=== PATIENT | female | born 1980 | race Caucasian/White ===

== ENCOUNTER → 2017-03-26 | Outpatient (CLI) | payer BC ==
[~2017-03-26] MED LIST: PRENATAL VITAMI1 TA5 PO
== END ==
LOC: MC.RAD 10:44
DX: N64.4 Mastodynia (principal)

== ENCOUNTER 2019-08-15 06:57 | Day surgery (SDC) | payer OTHER ==
[~2019-08-15] VITALS: Ht 170.2 cm; Wt 66.4 kg
[2019-08-15 07:18] VITALS: BP 134/88; PULSE 70; TEMP 98
[2019-08-15 08:55] VITALS: BP 145/75; PULSE 91; TEMP 98.4
--- NOTE | 2019-08-15 08:55 | NUR ---
TO [facility] PER CART FROM ENDOSCOPY. ALERT ORIENTED X3, AMBULATED TO RECLINER WITH ASSIST AND TOLERATED WELL. AT BEDSIDE. RECEIVED WATER.
[2019-08-15 09:10] VITALS: BP 126/74; PULSE 62
--- NOTE | 2019-08-15 09:20 | NUR ---
DR CLAROS INTO TALK TO PATIENT AND HER .
[2019-08-15 09:28] VITALS: BP 131/79; PULSE 66
--- NOTE | 2019-08-15 09:28 | NUR ---
RECEIVED DISCHARGE INSTRUCIONS AND VERBALIZED UNDERSTANDING. RECEIVED ADDITIONAL HAND OUT ON ULCERTIVE COLITIS.
--- NOTE | 2019-08-15 09:40 | NUR ---
DISCHARGED PER WC BY NURSING STAFF TO PRIVATE CAR IN CARE OF - PIERO.
== END 2019-08-15 09:53 | disposition home or self-care (01) ==
LOC: SDCO 06:57
DX: K52.9 Noninfective gastroenteritis and colitis, unspecified (principal); K92.1 Melena
CPT/HCPCS: J1200; J2250; J3010; J7030

== ENCOUNTER → 2019-09-02 | Outpatient (CLI) | payer OTHER | LOC: COL.RAD 09:45 | DX: K52.9 Noninfective gastroenteritis and colitis, unspecified (principal); K51.90 Ulcerative colitis, unspecified, without complications; N88.8 Other specified noninflammatory disorders of cervix uteri | CPT/HCPCS: A9585 ==

== ENCOUNTER 2020-04-10 16:27 | Inpatient (IN) | payer OTHER ==
[~2020-04-10] VITALS: Ht 170.2 cm; Wt 65.7 kg
[~2020-04-10 16:27] MED LIST changes: +LIALDA 1.2 GM1.2 GM PO
[2020-04-10 16:38] VITALS: BP 136/72; PULSE 79; TEMP 98.1
[2020-04-10] MEDS ORDERED: PROBIOTIC ACID1 EAC3 PO (17:11)
[2020-04-10] MEDS ORDERED: ENTOCORT EC3 MG PO (17:11)
--- NOTE | 2020-04-10 17:13 | NUR ---
PT SETTLED IN ROOM, ALLERGIES VERIFED, MED REC COMPLETED, COVID AND INFECTIOUS DISEASE SCREENING COMPLETED, 5-PAGE COMPLETED, IV PLACED IN RFA. PT IN BED, BED IN LOW POSITION, NO OTHER NEEDS AT THIS TIME.
--- NOTE | 2020-04-10 17:17 | NUR ---
PT COMPLAINING OF DIHARREA AND ABDOMINAL PAIN 03/28.
--- NOTE | 2020-04-10 18:08 | NUR ---
PT COMPLAINING OF ABDOMINAL PAIN 03/28, TYLENOL BROUGHT IN FOR PAIN, NEED TO REASSESS FOR FURTHER PAIN INTERVENTION. ASSESSMENT PERFORMED, FLUIDS HUNG, LOVENOX GIVEN. STOOL SAMPLE CUP AND HAT IN ROOM FOR WHEN PT HAS BM. PT REPORTS SHE HAD A STOOL SAMPLE COLLECTED YESTERDAY THAT WAS NEGATIVE FOR CDIFF. TB TEST TO BE COLLECTED TOMORROW MORNING BY LAB. NO OTHER NEEDS AT THIS TIME.
[2020-04-10 18:24] LABS: HEMATOCRIT 40.2 % (37.0-47.0); HEMOGLOBIN 13.3 g/dl (12.5-16.0); MEAN CELL VOLUME 96 fl (80.0-100.0); MEAN CORPUSCULAR HEMOGLOBIN 32 pg (27.0-31.0); MEAN CORPUSCULAR HGB CONC 33 g/dl (33.0-37.0); MEAN PLATELET VOLUME 8.9 fl (7.4-10.4); PLATELET COUNT 207 K/mm3 (130-400); RED BLOOD COUNT 4.19 M/mm3 (4.10-5.30); REDCELL DISTRIBUTION WIDTH-CV 12.1 % (11.5-14.5)
[2020-04-10 18:37] LABS: ALBUMIN 3.7 gm/dL (3.5-5.0); BILIRUBIN,TOTAL 0.4 mg/dL (0.0-1.0); CALCIUM 8.5 mg/dL (8.4-10.2); CREATININE, serum 0.79 (0.52-1.25); POTASSIUM 3.8 mmol/L (3.4-5.0); TOTAL PROTEIN 7.3 gm/dL (6.4-8.2)
[2020-04-10 18:48] LABS: BAND 27 % (0-10); EOSINOPHIL 7 % (0-4); LYMPHOCYTE 17 % (20.0-51.0); NEUTROPHILS 40 % (42.0-75.2); PLATELET ESTIMATE NORMAL (NORMAL); TOXIC GRANULATION PRESENT
[2020-04-10 18:54] LABS: C-REACTIVE PROTEIN 15.6 mg/dL (0.0-0.9)
[2020-04-10 19:03] LABS: ERYTHROCYTE SEDIMENTATION RATE 29 mm/hr (0-20)
[2020-04-10 19:30] VITALS: BP 130/74; PULSE 89
--- NOTE | 2020-04-10 19:51 | NUR ---
Pt assessment completed. Pt alert and oriented x4. Pt states pain is 3/10 across her lower abdomen. Pt describes pain as "aching/cramping". IVF infusing per orders to right forearm IV site without complications. Pt denies any other needs at this time. Call light within reach. Will conitnue to monitor
[2020-04-10 22:40] LABS: CLOSTRIDIUM DIFF A/B NEG; CLOSTRIDIUM DIFF A/B INTERP No C.diff present
[2020-04-11] VITALS (7 sets, daily range): BP systolic 106–128; BP diastolic 56–73; PULSE 65–89; TEMP 97.6–98.4
--- NOTE | 2020-04-11 02:00 | NUR ---
Pt resting in bed at this time. Complaints of lower abdominal pain that is rated 2/10. IVF infusing per orders. Pt denies any need at this time. Call light within reach.
--- NOTE | 2020-04-11 05:30 | NUR ---
Pt had uneventful shift. Pt states she rested well throughout the night. Complaints of lower abdominal throughout the night that pt stated was "tolerable". IVF infusing per orders to right forearm IV site. Pt denies any other needs at this time. Call light within reach.
--- NOTE | 2020-04-11 06:50 | NUR ---
REPORT GIVEN TO JOSE C DANIELS
[2020-04-11 07:38] LABS: MEAN CELL VOLUME 95 fl (80.0-100.0); MEAN CORPUSCULAR HEMOGLOBIN 32 pg (27.0-31.0); MEAN CORPUSCULAR HGB CONC 34 g/dl (33.0-37.0); MEAN PLATELET VOLUME 9.2 fl (7.4-10.4); PLATELET COUNT 202 K/mm3 (130-400); RED BLOOD COUNT 3.75 M/mm3 (4.10-5.30); REDCELL DISTRIBUTION WIDTH-CV 11.9 % (11.5-14.5)
[2020-04-11 07:43] LABS: HEMATOCRIT 35.7 % (37.0-47.0)
[2020-04-11 07:52] LABS: ALBUMIN 3.3 gm/dL (3.5-5.0); BILIRUBIN,TOTAL 0.3 mg/dL (0.0-1.0); CREATININE, serum 0.6 (0.52-1.25); POTASSIUM 3.9 mmol/L (3.4-5.0); TOTAL PROTEIN 6.4 gm/dL (6.4-8.2)
[2020-04-11 08:05] LABS: C-REACTIVE PROTEIN 13.5 mg/dL (0.0-0.9)
[2020-04-11 08:09] LABS: ERYTHROCYTE SEDIMENTATION RATE 34 mm/hr (0-20)
[2020-04-11 08:24] LABS: BAND 43 % (0-10); BASOPHIL 1 % (0-2); LYMPHOCYTE 8 % (20.0-51.0); NEUTROPHILS 39 % (42.0-75.2); PLATELET ESTIMATE NORMAL (NORMAL)
--- NOTE | 2020-04-11 08:48 | NUR ---
Assessment completed, alert/oriented, vital signs stable, patient denies any pain and stated she is doing better in that reguard, however she is still having frequent loose/bloody stools, C-diff(-) and she is scheduled for a Sigmoidoscopy at 0930, she has been NPO and has signed informed consent, IV solu-medrol given this morning, she denies other needs at this time, will continue to monitor
--- NOTE | 2020-04-11 09:40 | NUR ---
patient is going down to Endoscopy at this time
--- NOTE | 2020-04-11 11:27 | NUR ---
Patient has returned back to the Medical floor from Endosocopy, she is drowsy but arousable, vital signs stable,
--- NOTE | 2020-04-11 15:06 | NUR ---
JAYCE met with the patient to discuss discharge plan. The patient lives in [place] with her , Adriel (ph#[phone]), and children. She reports independence with ADLs and does not have any DME. The patient's PCP is Dr. Carolyne Stover and she receives her medications at [facility]. She reports no difficulties obtaining her meds. The patient does not have advance directives and she was not interested in completing them at this time. The patient plans to return home with her family upon discharge. No additional needs at this time.
--- NOTE | 2020-04-11 19:32 | NUR ---
Pt assessment completed and documented. Pt resting in bed at this time. Pt alert and oriented x4. States she is having 5/10 intermittent pain to her lower abdomen that is described as cramping. PRN norco given per orders for pain. IVF infusing per orders to right forearm IV site. Pt denies any other needs at this time. Call light within reach. Will continue to monitor.
[2020-04-12 00:25] VITALS: BP 113/67; PULSE 74; TEMP 97.6
--- NOTE | 2020-04-12 01:59 | NUR ---
Pt laying in bed awake at this time. States she has not been able to sleep yet. No complaints of pain at this time. Denies any other needs. Call light within reach
[2020-04-12 03:59] VITALS: BP 114/61; PULSE 62; TEMP 97.9
--- NOTE | 2020-04-12 05:23 | NUR ---
Pt awake throughout most of the night. Pt was able to eat half of her dinner last night, but stated she thinks it made her abdominal pain worse. PRN norco and morphine given x1 for abdominal pain. IVF infusing per orders to right forearm IV site. Pt denies any other needs at this time. Call light within reach.
--- NOTE | 2020-04-12 07:07 | NUR ---
Report given to JOSE C Caceres
[2020-04-12 07:27] LABS: HEMOGLOBIN 11.7 g/dl (12.5-16.0); MEAN CELL VOLUME 95 fl (80.0-100.0); MEAN CORPUSCULAR HEMOGLOBIN 32 pg (27.0-31.0); MEAN CORPUSCULAR HGB CONC 34 g/dl (33.0-37.0); MEAN PLATELET VOLUME 9.4 fl (7.4-10.4); PLATELET COUNT 238 K/mm3 (130-400); RED BLOOD COUNT 3.67 M/mm3 (4.10-5.30)
[2020-04-12 07:40] LABS: HEMATOCRIT 34.9 % (37.0-47.0)
[2020-04-12 07:41] LABS: BILIRUBIN,TOTAL 0.2 mg/dL (0.0-1.0); C-REACTIVE PROTEIN 4.6 mg/dL (0.0-0.9); CALCIUM 7.9 mg/dL (8.4-10.2); CREATININE, serum 0.65 (0.52-1.25); TOTAL PROTEIN 6.1 gm/dL (6.4-8.2)
[2020-04-12 07:45] VITALS: BP 123/77; PULSE 63; TEMP 97.8
[2020-04-12 08:48] LABS: BAND 51 % (0-10); LYMPHOCYTE 15 % (20.0-51.0); NEUTROPHILS 27 % (42.0-75.2); PLATELET ESTIMATE NORMAL (NORMAL)
[2020-04-12 08:50] LABS: ERYTHROCYTE SEDIMENTATION RATE 20 mm/hr (0-20)
--- NOTE | 2020-04-12 08:51 | NUR ---
PT AOX4. REPORTS 4 OVERNIGHT LOOSE STOOLS SINCE MIDNIGHT AND 3 SINCE 0530. REPORTS MILD 1/10 PAIN TO LOWER ABD/LEFT ABD ACHING/CRAMPING. DENIES NAUSEA. REPORTS HAD EGG BREAKFAST AND IMMEIATELY WITH BM. PAIN INCREASES WITH BM'S THAT ARENT COMPLETELY LOOSE AND DISAPPEARS ONCE BM IS COMPLETE. WOULD NOT LIKE PAIN MEDS AT THIS TIME. STEADY INDEPENDENT AMBULATION. NO OTHER CONCERNS
[2020-04-12 11:24] VITALS: BP 120/66; PULSE 81; TEMP 97.5
[2020-04-12 16:18] VITALS: BP 117/66; PULSE 64; TEMP 98.3
[2020-04-12 19:18] VITALS: BP 116/76; PULSE 65; TEMP 98.1
--- NOTE | 2020-04-12 20:00 | NUR ---
Pt resting in bed at this time. Pt assessment completed and documented. Pt alert and oriented x4. Denies pain. IVF infusing per orders to right forearm IV site. Pt denies any other needs at this time. Call light within reach. Will continue to monitor.
[2020-04-13] VITALS (7 sets, daily range): BP systolic 111–135; BP diastolic 57–87; PULSE 53–72; TEMP 97.7–98.3
--- NOTE | 2020-04-13 05:21 | NUR ---
Pt had uneventful shift. Pt rested on and off throughout the night. Denied pain throughout shift. IVF infusing per orders to right forearm IV site. Pt denies any other needs. Call light within reach.
[2020-04-13 06:59] LABS: HEMOGLOBIN 11.3 g/dl (12.5-16.0); MEAN CELL VOLUME 96 fl (80.0-100.0); MEAN CORPUSCULAR HEMOGLOBIN 32 pg (27.0-31.0); MEAN CORPUSCULAR HGB CONC 33 g/dl (33.0-37.0); MEAN PLATELET VOLUME 9.2 fl (7.4-10.4); PLATELET COUNT 226 K/mm3 (130-400); RED BLOOD COUNT 3.55 M/mm3 (4.10-5.30); REDCELL DISTRIBUTION WIDTH-CV 12.1 % (11.5-14.5)
--- NOTE | 2020-04-13 07:02 | NUR ---
Report given to JOSE C Silveira
[2020-04-13 07:10] LABS: HEMATOCRIT 34.2 % (37.0-47.0)
[2020-04-13 07:19] LABS: C-REACTIVE PROTEIN 2.7 mg/dL (0.0-0.9); CALCIUM 8.1 mg/dL (8.4-10.2); CREATININE, serum 0.65 (0.52-1.25); POTASSIUM 3.9 mmol/L (3.4-5.0)
[2020-04-13 07:38] LABS: BAND 33 % (0-10); LYMPHOCYTE 12 % (20.0-51.0); METAMYELOCYTE 1 % (0-0); NEUTROPHILS 45 % (42.0-75.2)
[2020-04-13 07:39] LABS: ERYTHROCYTE SEDIMENTATION RATE 22 mm/hr (0-20); PLATELET ESTIMATE NORMAL (NORMAL)
--- NOTE | 2020-04-13 09:27 | NUR ---
Assessment complete. Patient sitting up in bed. Awake and alert. No complaints of pain or discomfort. Denies nausea or vomiting at this time. IV site is CD&I. Fluids currently infusing at this time. Pt continues to track bowel movements and is aware of her POC at this time. No other needs were expressed at this time. Call light is in reach.
--- NOTE | 2020-04-13 17:06 | NUR ---
Pt has had a very uneventful day. Fluids continue to infuse. IV site is CD&I. Pt has denied pain or discomfort. Dr. Guzman did call to let the patient know that she is working on gettting more information from [place]. Pt was sleeping at the time so I passed this message on for her. Patient has been ambulating in room and in halls independently throughout the day with no issues. Continuing to monior. No other needs at this time. Call light is in reach.
[2020-04-14 03:38] VITALS: BP 144/65; PULSE 69; TEMP 97.6
[2020-04-14 04:57] LABS: TB GOLD INTERPRETATION Negative (Negative)
--- NOTE | 2020-04-14 05:10 | NUR ---
PATIENT WALKED THE HALLS AT THE BEGINNING OF THE SHIFT AND WATCHED TV ON HER PHONE. PATIENT REQUESTED SOME MELATONIN TO HELP HER SLEEP BUT REPORTED THAT IT DID NOT HELP HER SLEEP. PATIENT WAS REPORTING SOME PAIN/CRAMPING IN HER ABDOMEN AND PRN TYLENOL WAS GIVEN. PATIENT FLUIDS ARE INFUSING IN HER IV ON HER RIGHT FOREARM. PATIENT HAS DENIED ANY OTHER NEEDS. WILL REPORT OFF TO DAY SHIFT.
[2020-04-14 06:49] LABS: HEMOGLOBIN 11.6 g/dl (12.5-16.0); MEAN CELL VOLUME 96 fl (80.0-100.0); MEAN CORPUSCULAR HEMOGLOBIN 32 pg (27.0-31.0); MEAN CORPUSCULAR HGB CONC 33 g/dl (33.0-37.0); PLATELET COUNT 217 K/mm3 (130-400); RED BLOOD COUNT 3.62 M/mm3 (4.10-5.30); REDCELL DISTRIBUTION WIDTH-CV 12.1 % (11.5-14.5)
[2020-04-14 06:50] LABS: HEMATOCRIT 34.8 % (37.0-47.0)
[2020-04-14 07:01] LABS: CALCIUM 8.4 mg/dL (8.4-10.2); CREATININE, serum 0.67 (0.52-1.25); POTASSIUM 3.7 mmol/L (3.4-5.0)
[2020-04-14 07:29] LABS: ERYTHROCYTE SEDIMENTATION RATE 20 mm/hr (0-20)
[2020-04-14 07:48] VITALS: BP 128/69; PULSE 65; TEMP 97.8
[2020-04-14 09:51] LABS: BAND 26 % (0-10); LYMPHOCYTE 12 % (20.0-51.0); NEUTROPHILS 54 % (42.0-75.2); PLATELET ESTIMATE NORMAL (NORMAL)
--- NOTE | 2020-04-14 09:59 | NUR ---
Assessment complete. Patient sitting up ready to shower independently. States she feels good today. She is aware of her POC at this time. Denies pain or discomfort and continues to see a decrease in her BMs. IV site is CD&I, IV fluids running. No nausea or abdominal pain. No other needs were expressed at this time. Call light is in reach.
[2020-04-14] MEDS ORDERED: BENTYL 10MG10 MG/CAP PO (10:52)
[2020-04-14] MEDS ORDERED: PREDNISONE20 MG PO (10:54)
[2020-04-14] MEDS ORDERED: CANASA 1000MG1000 MG RC (10:55)
[2020-04-14 11:56] VITALS: BP 133/84; PULSE 84; TEMP 97.6
--- NOTE | 2020-04-14 13:30 | NUR ---
Pt left the floor at this time. Discharge paperwork was discussed. No further questions or concerns.
== END 2020-04-14 14:09 | disposition home or self-care (01) | DRG 387 ==
LOC: MEDICAL 16:27
PROVIDERS: Internal Medicine Gastroenterology; Physician Assistant; ADMIT Hospitalist
PROC: 0DBN8ZX Excision of Sigmoid Colon, Via Natural or Artificial Opening Endoscopic, Diagnostic (ICD-10-PCS; 2020-04-11)
PROC: 0DBP8ZX Excision of Rectum, Via Natural or Artificial Opening Endoscopic, Diagnostic (ICD-10-PCS; principal; 2020-04-11 09:30)
DX: K51.211 Ulcerative (chronic) proctitis with rectal bleeding (principal); R14.0 Abdominal distension (gaseous)
CPT/HCPCS: 99222-AI; 99231-AI; 99232-AI; 99239; J1650; J2250; J2270; J2920; J2930; J3010; J7030

== ENCOUNTER 2021-05-22 07:23 | Day surgery (SDC) | payer OTHER ==
[~2021-05-22] VITALS: Ht 170.2 cm; Wt 64.2 kg
[~2021-05-22 07:23] MED LIST changes: +BENTYL 10MG10 MG/CAP PO; +CANASA 1000MG1000 MG RC; +ENTOCORT EC3 MG PO; +PREDNISONE20 MG PO; +PROBIOTIC ACID1 EAC3 PO
[2021-05-22 07:33] VITALS: BP 116/61; PULSE 59; TEMP 98.3
[2021-05-22] MEDS ORDERED: IMURAN 50MG TAB50 MG PO (07:39)
[2021-05-22 09:40] VITALS: BP 107/60; PULSE 81; TEMP 97.8
--- NOTE | 2021-05-22 09:40 | NUR ---
The patient arrived back to [place] [facility] from the endoscopy suite at this time. The patient appears alert and oriented and ambulated from the cart to the recliner in her room with the stand by assistance of one nurse and appeared to tolerate the activity well. Post procedure vital signs were started at this time. The patient agrees to try some water and a muffin at this time. Will continue to monitor the patient.
[2021-05-22 09:55] VITALS: BP 99/39; PULSE 79
--- NOTE | 2021-05-22 09:55 | NUR ---
The patient appears to be tolerating the food and drink well. Vital signs appear stable. Will continue to monitor the patient.
[2021-05-22 10:10] VITALS: BP 124/76; PULSE 63
--- NOTE | 2021-05-22 10:10 | NUR ---
The patient appears to be resting comfortably on the cart at this time. Vital signs continue to appear stable. The patient is waiting to speak to the doctor prior to discharge.
[2021-05-22 10:25] VITALS: BP 118/77; PULSE 67
--- NOTE | 2021-05-22 10:30 | NUR ---
The patient is sitting up in the recliner and appears to be resting comfortably at this time. Vital signs continue to appear stable. Dr. Zuluaga just entered the patient's room to discuss the findings of the procedure.
--- NOTE | 2021-05-22 10:50 | NUR ---
The patient's IV was INT'd and she amulated to the bathroom independently using a steady gait. The patient is scheduled to have an CT done prior to discharge once Dr. Zuluaga speaks with radiology.
--- NOTE | 2021-05-22 11:55 | NUR ---
The patient was taken via wheelchair to have her CT completed at this time. The nurse will continue to monitor the patient when she returns to the unit.
--- NOTE | 2021-05-22 12:10 | NUR ---
The patient is back from CT and is dressed and ready for discharge. Discharge instructions were reviewed with the patient at this time. She verbalized understanding and has no questions for the nurse at this time. The patient's INT to her right hand was removed and a pressure dressing was applied to the site.
--- NOTE | 2021-05-22 12:14 | NUR ---
The patient was escorted out via wheelchair to a private vehicle by JOSE C Marin. The patient's belongings and discharge paperwork were sent with hre. The patient's is present to drive her home.
== END 2021-05-22 12:15 | disposition home or self-care (01) ==
LOC: SDCO 07:23
DX: K51.40 Inflammatory polyps of colon without complications (principal); K51.911 Ulcerative colitis, unspecified with rectal bleeding; K56.699 Other intestinal obstruction unspecified as to partial versus complete obstruction; K52.9 Noninfective gastroenteritis and colitis, unspecified; K63.89 Other specified diseases of intestine; K62.89 Other specified diseases of anus and rectum; D84.821 Immunodeficiency due to drugs; Z79.899 Other long term (current) drug therapy
CPT/HCPCS: J2704; J7030; Q9967